=== PATIENT | female | born 1945 | race Caucasian/White ===

== ENCOUNTER 2017-12-12 10:30 | Emergency (ER) | payer OTHER ==
[~2017-12-12] VITALS: Ht 165.1 cm; Wt 100.0 kg
[2017-12-12 10:32] VITALS: BP 168/98; PULSE 66; RESP 18; TEMP 98.2; O2SAT 99
[2017-12-12] MEDS ORDERED: MOBI15TA PO (10:43)
[2017-12-12] MEDS ORDERED: LISI20TA3 PO (10:43)
[2017-12-12] MEDS ORDERED: LOVA40TA PO (10:43)
[2017-12-12] MEDS ORDERED: PANT20TA2 PO (10:43)
[2017-12-12] MEDS ORDERED: IBUPROFEN 600 MG TAB PO ONE (10:45)
--- NOTE | 2017-12-12 10:47 | PD ---
HPI Chief Complaint: Injury Time Seen by Provider: 10:37 Travel History International Travel<30 days: No Contact w/Intl Traveler<30days: No Traveled to known affect area: No History of Present Illness HPI 72-year-old right-hand dominant female presents to the ED for evaluation of 6/ 10 left hand pain. Described as throbbing. Worsened by attempted range of motion. No alleviating factors reported. Patient states that she wasn't looking where she was going and tripped over a curb, landing on her outstretched hand. She endorses tingling in the fifth digit. She denies any previous injury to that hand. She states that she also landed on the knee. Denies any knee pain on presentation. No treatment attempted at home. PFSH Past Medical History ?: Not Social History Tobacco Use: No Allergies-Medications (Allergen,Severity, Reaction): Coded Allergies: No Known Allergies (Unverified , 12/12/17) Reported Meds & Prescriptions Reported Meds & Active Scripts Active Reported Mobic (Meloxicam) 15 Mg Tab 15 Mg PO DAILY Pantoprazole (Pantoprazole Sodium) 20 Mg Tab 20 Mg PO DAILY Lovastatin 40 Mg Tab 40 Mg PO BID Lisinopril-Hctz 20-25 Mg Tab 1 Tab PO DAILY Review of Systems Except as stated in HPI: all other systems reviewed are Neg Physical Exam Narrative GENERAL: Well-nourished, well-developed pleasant white female in no acute distress. SKIN: Focused skin assessment warm/dry. Well-healed midline surgical scar over the anterior aspect of the left knee. HEAD: Normocephalic. EYES: No scleral icterus. No injection or drainage. NECK: Supple, trachea midline. No JVD or lymphadenopathy. CARDIOVASCULAR: Regular rate and rhythm without murmurs, gallops, or rubs. RESPIRATORY: Breath sounds equal bilaterally. No accessory muscle use. GASTROINTESTINAL: Abdomen soft, non-tender, nondistended. MUSCULOSKELETAL: No cyanosis, or edema. FOCUSED LEFT UPPER EXTREMITY EXAM: 2+ radial pulse. Tender edema and ecchymosis over the MP joint of the fourth digit. No tenderness to palpation of the carpal bones. Patient is able to weakly flex and extend the hand. Sensation intact to light touch distally. FOCUSED LEFT LOWER EXTREMITY EXAM: No tenderness to palpation over the bones of the knee. Patient is able to flex beyond 90 and extend to 0. Neurovascularly intact distally. BACK: Nontender without obvious deformity. No CVA tenderness. Data Data Last Documented VS Vital Signs Date Time Temp Pulse Resp B/P (MAP) Pulse Ox O2 Delivery O2 Flow Rate FiO2 12/12/17 10:32 98.2 66 18 168/98 (121) 99 Orders Orders Hand, Complete ([id number]) (12/12/17 10:39) Ice/Cold Pack (12/12/17 10:39) Ibuprofen (Motrin) (12/12/17 10:45) Ed Discharge Order (12/12/17 11:35) [facility] Medical Decision Making Medical Screen Exam Complete: Yes Emergency Medical Condition: Yes Differential Diagnosis Contusion versus sprain versus fracture versus other Narrative Course 72-year-old right-hand dominant female presents to the ED for evaluation of 6/ 10 left hand pain. Onset after she tripped over a curb, landing on her outstretched hand. She endorses tingling in the fifth digit. Vitals reviewed. Patient is hypertensive on presentation, endorses history of hypertension. Physical exam reveals ecchymosis and edema over the fourth MP joint of the left hand, otherwise unremarkable. Icepack was applied. Patient was administered 600 mg ibuprofen by mouth. X-ray reveals no fracture per radiology read. This is contusion of the hand. Fredi bandage was applied for compression. Patient instructed to rest, ice, elevate the extremity, use OTC medications as directed on the label, follow with a hand surgeon or primary care should symptoms fail to resolve. She is stable and discharged home. Diagnosis Primary Impression: Contusion of hand, left Qualified Codes: S60.222A - Contusion of left hand, initial encounter Referrals: Hand Surgeon Patient Instructions: Contusion in Adults (ED), General Instructions Additional Instructions: Rest, ice, compress, elevate the extremity. Apply ice no longer than 10-15 minutes per hour a few times a day. OTC medications such as Tylenol as ibuprofen up to 3 times a day as needed for pain. Return to normal, gentle activity as tolerated. Follow up with the hand surgeon or your primary care provider. Return to the ED for any urgent or emergent medical condition. Med/Other Pt SpecificInfo: Prescription(s) given Disposition: 01 DISCHARGE HOME Condition: Stable Sherlyn Galan Dec 12, 2017 10:47
--- NOTE | 2017-12-12 11:37 | RADRPT ---
EXAM DATE/TIME: 12/12/2017 11:07 [facility] COMPARISON: No previous studies available for comparison. INDICATIONS : Left hand pain; fell this morning. MEDICAL HISTORY : None. SURGICAL HISTORY : None. ENCOUNTER: Initial ACUITY: 1 day PAIN SCORE: 7/10 LOCATION: Left hand; 5th digit. FINDINGS: Three view examination of the left hand demonstrates no soft tissue swelling, dislocation, or fractur e. The carpal bones appear intact. The interphalangeal and metacarpophalangeal joints are intact. Bony mineralization is normal. CONCLUSION: No fracture. Ariel Valencia MD FACR on December 12, 2017 at 11:34 Board Certified Radiologist. This report was verified electronically.
[2017-12-12 12:01] VITALS: RESP 20
== END 2017-12-12 12:02 | disposition home or self-care (01) ==
LOC: NEPK 10:30
DX: S60.222A Contusion of left hand, initial encounter (principal); W18.09XA Striking against other object with subsequent fall, initial encounter
CPT/HCPCS: 73130; 99283